=== PATIENT | male | born 1945 | race African-American/Black ===

== ENCOUNTER 2016-05-23 11:54 | Emergency (ER) | payer OTHER, MEDICARE ==
[~2016-05-23] VITALS: Ht 167.6 cm; Wt 80.7 kg
[~2016-05-23 11:54] MED LIST: ASPIRIN81 M1 PO; CELLCEPT500 MG PO; DOXYCYCLINE HY100 MG PO; FOLBEE PLUS TABL5 MG PO; Glucotrol PO; Januvia PO; KENALOG,ARISTOC15 GM TP; Keflex PO; MAGNESIUM OXID400 MG PO; METOPROLOL SUCC25 MG PO; NEXIUM40 MG PO; PEGASYS180 MCG/0. PO; PEN-VEE K,VEET500 MG PO; PERCOCET 5/31 TABLET PO; PREDNISONE5 MG PO; PROGRAF1 MG PO; Prograf PO; QUIN B STRONG1 EACH PO; RENVELA800 MG PO; RIBASPHERE200 MG PO; SENSIPAR90 MG PO; STRESS FORMULA1 EAC9 PO; TOPROL XL25 MG PO
[2016-05-23 16:03] VITALS: BP 143/79
== END 2016-05-23 16:06 | disposition home or self-care (01) ==
LOC: EME 11:54
DX: B35.3 Tinea pedis (principal); B35.1 Tinea unguium; S93.602A Unspecified sprain of left foot, initial encounter; X50.1XXA Overexertion from prolonged static or awkward postures, initial encounter; I12.9 Hypertensive chronic kidney disease with stage 1 through stage 4 chronic kidney disease, or unspecified chronic kidney disease; N18.9 Chronic kidney disease, unspecified; Z94.0 Kidney transplant status; E11.9 Type 2 diabetes mellitus without complications
CPT/HCPCS: 73630; 99281; 99284

== ENCOUNTER 2016-07-12 11:49 | Observation (INO) | payer OTHER, MEDICARE ==
[~2016-07-12] VITALS: Ht 168.9 cm; Wt 72.2 kg
[2016-07-12 12:56] LABS: HEMATOCRIT 43.2 % (38.0-50.0); MCH 31.3 PG (29.0-34.0); MCV 91.9 FL (86-99); MEAN PLAT.VOLUME 11.9 uM^3 (9.0-12.4); PLATELET COUNT 96 K/uL (156-360); RBC DIS.WIDTH-CV 13.1 % (11.8-14.6); WHITE BLOOD COUNT 5.3 K/uL (4.1-10.2)
[2016-07-12 13:05] LABS: CHLORIDE 105 mEq/L (99-109); POTASSIUM 4.5 mEq/L (3.7-5.4); SODIUM 139 mEq/L (136-147)
[2016-07-12 13:07] LABS: GLUCOSE 146 mg/dL (70-99)
[2016-07-12 13:08] LABS: ANION GAP 13 MEQ/L (2-14)
[2016-07-12 13:09] LABS: TOTAL BILIRUBIN 1.6 mg/dL (0.0-1.0)
[2016-07-12 13:11] LABS: ALKALINE PHOSPHATASE 76 IU/L (3-129); GFR ESTIMATE (CALCULATED) > 59 mL/min/
[2016-07-12 13:12] LABS: UREA NITROGEN (BUN) 22 mg/dL (9-23)
[2016-07-12 13:51] LABS: MAGNESIUM 1.5 mg/dL (1.3-2.7)
[2016-07-12 15:10] LABS: ADD MIUA? YES; BILIRUBIN NEGATIVE; BLOOD LARGE; COLOR YELLOW ((YELLOW)); GLUCOSE (STRIP) NEGATIVE; KETONES NEGATIVE; LEUKOCYTES LARGE; NITRITE NEGATIVE; PROTEIN (STRIP) 30; SPECIFIC GRAVITY 1.017 (1.000-1.030); UROBILINOGEN 0.2 MG/DL (0.2-1.0)
[2016-07-12 15:27] LABS: BACTERIA NONE SEEN /HPF; EPITHELIAL CELLS RARE /HPF; MUCUS TRACE /LPF; RED BLOOD CELLS TNTC /HPF (0-5); UCUL ADDED? YES; WHITE BLOOD CELLS TNTC /HPF (0-5)
[2016-07-12 15:50] LABS: INFLUENZA A VIRAL ANTIGEN NEGATIVE; INFLUENZA B VIRAL ANTIGEN NEGATIVE
[2016-07-12] MEDS ORDERED: MYCOPHENOLATE250 MG PO (16:17)
[2016-07-12] MEDS ORDERED: LANTUS 3 M100 UNITS1 PO (16:17)
[2016-07-12] MEDS ORDERED: CICLOPIROX30 GM TP (16:18)
[2016-07-12] MEDS ORDERED: METFORMIN HCL500 MG PO (16:18)
[2016-07-12] MEDS ORDERED: GABAPENTIN100 MG PO (16:18)
[2016-07-12] MEDS ORDERED: ZINC50 M3 PO (16:20)
[2016-07-12] MEDS ORDERED: VITAMIN B-12250 MCG PO (16:21)
[2016-07-12] MEDS ORDERED: SLOW-MAG,MAG DE64 MG PO (16:23)
[2016-07-12 18:19] VITALS: BP 168/90
[2016-07-12 20:22] VITALS: BP 159/90
[2016-07-12 20:45] LABS: POINT-OF-CARE METER ID UU13113700
[2016-07-13 00:18] VITALS: BP 154/79
[2016-07-13 04:40] VITALS: BP 156/83
[2016-07-13 07:27] LABS: POINT-OF-CARE METER ID UU13113831
[2016-07-13 07:35] VITALS: BP 153/85
[2016-07-13] MEDS ORDERED: CIPRO500 MG PO (08:20)
[2016-07-13] MEDS ORDERED: PROBIOTIC1 EAC7 PO (08:20)
[2016-07-13] MEDS ORDERED: FLAGYL500 MG PO (08:20)
[2016-07-13 09:55] LABS: HEMATOCRIT 40.5 % (38.0-50.0); MCHC 33.1 G/DL (30.0-36.0); MCV 93.8 FL (86-99); MEAN PLAT.VOLUME 11.9 uM^3 (9.0-12.4); PLATELET COUNT 81 K/uL (156-360); RBC DIS.WIDTH-CV 13.2 % (11.8-14.6); RBC DIS.WIDTH-SD 45.4 % (39-53); RED BLOOD COUNT 4.32 M/uL (4.00-5.50); WHITE BLOOD COUNT 3.4 K/uL (4.1-10.2)
[2016-07-13 10:13] LABS: ALKALINE PHOSPHATASE 57 IU/L (3-129); ANION GAP 10 MEQ/L (2-14); CHLORIDE 108 MEQ/L (99-109); DIRECT BILIRUBIN 0.2 mg/dL (0.0-0.3); GFR ESTIMATE (CALCULATED) > 59 mL/min/; GLUCOSE 118 mg/dL (70-99); POTASSIUM 4.3 MEQ/L (3.7-5.4); SAMPLE HEMOLYSIS CHECK 0; SAMPLE ICTERIC CHECK 0; SAMPLE LIPEMIA CHECK 0; SODIUM 139 MEQ/L (136-147); UREA NITROGEN (BUN) 18 mg/dL (9-23)
[2016-07-13 10:56] VITALS: BP 179/84
[2016-07-13 10:59] LABS: POINT-OF-CARE METER ID UU14162513
[2016-07-13 14:01] LABS: C DIFF TOXIN NEGATIVE (NEGATIVE)
[2016-07-13 14:04] LABS: PROBE CHECK PASS; SPECIMEN PROCESSING CONTROL PASS
[2016-07-16 07:43] LABS: HCV RNA (LOG IU/mL) 6.27 (<1.18)
== END 2016-07-13 15:22 | disposition home or self-care (01) ==
LOC: EME 11:49 → RME 11:49 → EDOF 16:36 → 5WEST 16:36 → EDOF 16:36 → 5WEST 18:12
PROVIDERS: Emergency Medicine; Hospitalist; Internal Medicine; Internal Medicine Gastroenterology
DX: K52.9 Noninfective gastroenteritis and colitis, unspecified (principal); N17.9 Acute kidney failure, unspecified; B19.20 Unspecified viral hepatitis C without hepatic coma; R79.89 Other specified abnormal findings of blood chemistry; K80.20 Calculus of gallbladder without cholecystitis without obstruction; Z94.0 Kidney transplant status; Z92.25 Personal history of immunosuppression therapy; N39.0 Urinary tract infection, site not specified; K42.9 Umbilical hernia without obstruction or gangrene; D69.6 Thrombocytopenia, unspecified; E11.9 Type 2 diabetes mellitus without complications; Z79.4 Long term (current) use of insulin
CPT/HCPCS: 71020; 74176; 76705; 80053; 81003; 82248; 82948; 83735; 85027; 87040; 87077; 87086; 87186; 87493; 87502; 87506; 87522 90; 93005; 99281; 99285; C9113; G0378; J0696; J1644; J1815; J7030; J7050; J7507; J7512; J7517

== ENCOUNTER 2017-07-11 14:50 | Emergency (ER) | payer OTHER, MEDICARE ==
[~2017-07-11] VITALS: Ht 167.6 cm; Wt 68.7 kg
[~2017-07-11 14:50] MED LIST changes: +CICLOPIROX30 GM TP; +CIPRO500 MG PO; +FLAGYL500 MG PO; +GABAPENTIN100 MG PO; +LANTUS 3 M100 UNITS1 PO; +METFORMIN HCL500 MG PO; +MYCOPHENOLATE250 MG PO; +PROBIOTIC1 EAC7 PO; +SLOW-MAG,MAG DE64 MG PO; +VITAMIN B-12250 MCG PO; +ZINC50 M3 PO
[2017-07-11 22:05] VITALS: BP 176/100
== END 2017-07-11 22:07 | disposition home or self-care (01) ==
LOC: EME 14:50
PROC: 3E0234Z Introduction of Serum, Toxoid and Vaccine into Muscle, Percutaneous Approach (ICD-10-PCS; principal; 2017-07-11)
PROC: 08QPXZZ Repair Left Upper Eyelid, External Approach (ICD-10-PCS; principal; 2017-07-11)
PROC: 0HQGXZZ Repair Left Hand Skin, External Approach (ICD-10-PCS; principal; 2017-07-11)
DX: S09.90XA Unspecified injury of head, initial encounter (principal); S01.112A Laceration without foreign body of left eyelid and periocular area, initial encounter; S61.211A Laceration without foreign body of left index finger without damage to nail, initial encounter; W10.9XXA Fall (on) (from) unspecified stairs and steps, initial encounter; Z23 Encounter for immunization; I12.9 Hypertensive chronic kidney disease with stage 1 through stage 4 chronic kidney disease, or unspecified chronic kidney disease; N18.9 Chronic kidney disease, unspecified; K21.9 Gastro-esophageal reflux disease without esophagitis; Z94.0 Kidney transplant status
CPT/HCPCS: 70450; 70480; 72125; 73110; 99281; 99284

== ENCOUNTER 2017-07-16 10:57 | Emergency (ER) | payer OTHER, MEDICARE ==
[~2017-07-16] VITALS: Ht 167.6 cm; Wt 68.4 kg
[2017-07-16 11:17] VITALS: BP 177/83
== END 2017-07-16 12:49 | disposition home or self-care (01) ==
LOC: EME 10:57
DX: S01.112D Laceration without foreign body of left eyelid and periocular area, subsequent encounter (principal); S61.216D Laceration without foreign body of right little finger without damage to nail, subsequent encounter; W19.XXXD Unspecified fall, subsequent encounter
CPT/HCPCS: 99281; 99283